=== PATIENT | female | born 1985 | race Caucasian/White ===

== ENCOUNTER 2020-04-29 15:44 | Emergency (ER) | payer OTHER, SELFPAY ==
--- NOTE | ~2020-04-29 | XR_ITS ---
XR hand LT min 3V 04/29/2020 16:13 Indication: Laceration to the second, third and fourth digits after trauma with head tremor Procedure: 4 views left hand Comparison: No prior studies for comparison. Findings: There are soft tissue laceration overlying the third distal phalanx. No acute fracture or t raumatic malalignment is identified. Lateral views limited by overlying gauze. No foreign bodies. Impression: 1: No acute fracture identified. Limited study. Reviewed, dictated and finalized at location A. Impression: 1: No acute fracture identified. Limited study.
[2020-04-29 15:47] VITALS: BP 169/112; PULSE 140; RESP 18; TEMP 37; O2SAT 100
--- NOTE | 2020-04-29 18:30 | ED.GENADULT ---
HPI - General Adult General Chief complaint: Wound/Laceration Stated complaint: left finger laceration Time Seen by Provider: 04/29/20 15:57 Source: patient Mode of arrival: ambulatory Limitations: no limitations History of Present Illness HPI narrative: Patient is a 34-year-old female who presents to emergency department for evaluation of lacerations to the second third and fourth phalanxes that occurred just prior to arrival while using a hedge tremor. Patient notes her immunizations to be up-to-date to include tetanus. Patient notes moderate aching pain that is a throbbing constant pain worse with touch and activity. Injury occurred just prior to arrival Related Data Allergies Allergy/AdvReac Type Severity Reaction Status Date / Time No Known Allergies Allergy Mild Unverified 05/02/10 13:15 Review of Systems Review of Systems: All systems reviewed & are unremarkable except as noted in HPI and below PMFSH Family History Family History (Updated 12/17/17 @ 10:02 by DOCTOR UNKNOWN) Grandparent Family history of malignant neoplasm Father Family history of type 2 diabetes mellitus Exam Narrative: Exam Narrative: GENERAL: Well-appearing, well-nourished, and in no acute distress. HEAD: Normocephalic, atraumatic. EYES: PERRLA and EOMI. ENT: Nares clear, no rhinorrhea or epistaxis. Mucous membranes moist. EXTREMITIES: Normal range of motion. No edema. Patient with irregular laceration of the middle distal phalanx. Patient with 2 superficial linear lacerations 1 involving the second digit one involving the fourth digit both are linear and superficial and involve the distal phalanx only SKIN: Warm, dry, no rash. NEURO: No focal deficits. Alert and oriented x3. Neurovascularly intact. Capillary refill less than 2 seconds PSYCH: Normal mood and affect. Course Course Emergency Course: Patient in the room in no distress aware of case findings treatment plan and diagnosis agreeing to follow-up as directed or to return if symptoms worsen or concerns Vital Signs Vital signs: Vital Signs Temperature 98.6 F 04/29/20 15:47 Pulse Rate 140 H 04/29/20 15:47 Respiratory Rate 18 04/29/20 15:47 Blood Pressure 169/112 H 04/29/20 15:47 Pulse Oximetry 100 04/29/20 15:47 Temperature 98.6 F 04/29/20 15:47 Pulse Rate 140 H 04/29/20 15:47 Respiratory Rate 18 04/29/20 15:47 Blood Pressure 169/112 H 04/29/20 15:47 Pulse Oximetry 100 04/29/20 15:47 Procedures Laceration Laceration 1: Date: 04/29/20 Time: 18:32 Site: upper extremity Side (If applicable): left Size (cm): 2.5 Description: irregular Depth: simple, single layer Local Anesthetic: lidocaine 1% Pre-repair: wound explored, irrigated, irrigated extensively and minor debridement ====== Skin Level ====== Skin layer closed with: nylon Size (cm): 5-0 Number of sutures: 8 ====== Subcutaneous Layer ====== ====== Muscle Layer ====== ====== Tendon Layer ====== Laceration 2: Date: 04/29/20 Time: 18:32 Site: upper extremity Side (If applicable): left Size (cm): 1 Description: linear Depth: simple, single layer Local Anesthetic: lidocaine 1% Pre-repair: wound explored, irrigated and irrigated extensively ====== Skin Level ====== ====== Subcutaneous Layer ====== ====== Muscle Layer ====== ====== Tendon Layer ====== Laceration 3: Date: 04/29/20 Time: 18:33 Site: upper extremity Side (If applicable): left Size (cm): 1 Description: linear Depth: simple, single layer Local Anesthetic: lidocaine 1% Pre-repair: wound explored, irrigated and irrigated extensively ====== Skin Level ====== ====== Subcutaneous Layer ====== ====== Muscle Layer ====== ====== Tendon Layer ====== Medical De
== END 2020-04-29 19:13 | disposition home or self-care (01) ==
PROVIDERS: Emergency Provider Emergency Medicine
DX: S61.211A Laceration without foreign body of left index finger without damage to nail, initial encounter (principal); S61.213A Laceration without foreign body of left middle finger without damage to nail, initial encounter; S61.215A Laceration without foreign body of left ring finger without damage to nail, initial encounter; W29.3XXA Contact with powered garden and outdoor hand tools and machinery, initial encounter
CPT/HCPCS: 12002; 73130; 99283; A9270